=== PATIENT | male | born 1965 | race Native Hawaiian/Other Pacific Islander ===

== ENCOUNTER 2022-07-04 15:32 | Emergency (ER) | payer OTHER ==
[~2022-07-04] VITALS: Ht 175.3 cm; Wt 104.3 kg
[2022-07-04 15:35] VITALS: TEMP 98.9
[2022-07-04 17:13] LABS: PLATELET COUNT 334 K/uL (142-355)
[2022-07-04 17:24] LABS: POTASSIUM 3.8 mmol/L (3.6-5.2)
[2022-07-04 18:25] VITALS: BP 134/80
== END 2022-07-04 18:29 | disposition home or self-care (01) ==
LOC: ED 15:32
PROVIDERS: Emergency Medicine
DX: K29.60 Other gastritis without bleeding (principal)
CPT/HCPCS: 80053; 81002; 82272; 83690; 85027; 96374; 96375; 99284; J2405; J3490